=== PATIENT | female | born 1980 | race Hispanic/Latino ===

== ENCOUNTER 2021-01-28 14:06 | Outpatient (CLI) | payer OTHER | END 2021-01-28 14:07 | disposition home or self-care (01) | LOC: DTY/OP 14:06 | PROVIDERS: ATTEND Family Medicine | DX: Z68.31 Body mass index [BMI] 31.0-31.9, adult (principal) | CPT/HCPCS: 97802 ==

== ENCOUNTER 2021-04-15 07:38 | Outpatient (CLI) | payer BC | END 2021-04-15 07:39 | disposition home or self-care (01) | LOC: SCSRAD 07:38 | PROVIDERS: ATTEND Family Medicine | DX: M25.512 Pain in left shoulder (principal) ==